=== PATIENT | female | born 1955 | race Caucasian/White ===

== ENCOUNTER 2020-03-12 15:58 | Outpatient (CLI) | payer MEDICARE, SELFPAY ==
--- NOTE | ~2020-03-12 | US_ITS ---
EXAMINATION: US venous doppler LE RT DATE: 03/12/2020 17:23 INDICATION: Right lower limb swelling TECHNIQUE: Mayberry scale images without and with compression and Doppler images of the right lower extre mity veins were obtained. COMPARISON: None. FINDINGS: There is thrombosis in one of two right peroneal veins and the right gastrocnemius vein. Th e right common femoral vein, profunda femoral vein, femoral vein, popliteal vein, posterior tibial ve ins, and greater saphenous vein are patent. IMPRESSION: 1. Deep venous thrombosis in one of two peroneal veins and the gastrocnemius vein. Reviewed, dictated and finalized at location A. IMPRESSION: 1. Deep venous thrombosis in one of two peroneal veins and the gastrocnemius ve in.
--- NOTE | ~2020-03-12 | US_ITS ---
EXAMINATION: US ARTERIAL DUPLEX LOWER BRENDAN DATE: 03/12/2020 17:23 INDICATION: Bilateral lower limb edema TECHNIQUE: Grayscale ultrasound images and duplex color Doppler ultrasound images of the bilateral lo wer extremity arteries were obtained. COMPARISON: None FINDINGS: Waveforms are triphasic with brisk systolic upstroke throughout the bilateral lower extremities. Peak systolic velocities (cm/s) were obtained in the following arteries: Right lower extremity: Common femoral: 170 Superficial femoral, proximal: 126 Superficial femoral, mid: 142 Superficial femoral, distal: 149 Popliteal: 72 Peroneal, proximal: 97 Peroneal, distal: 73 Posterior tibial, proximal: 149 Dorsalis pedis: 62 Anterior tibial: 68 Left lower extremity: Common femoral: 160 Superficial femoral, proximal: 160 Superficial femoral, mid: 112 Superficial femoral, distal: 130 Popliteal: 90 Peroneal, proximal: 86 Peroneal, distal: 95 Posterior tibial, proximal: 161 Dorsalis pedis: 68 Anterior tibial: 50 IMPRESSION: 1. Normal waveforms and velocities of the lower extremities. Reviewed, dictated and finalized at location A.
== END 2020-03-12 15:59 | disposition home or self-care (01) ==
DX: M79.89 Other specified soft tissue disorders (principal); I82.461 Acute embolism and thrombosis of right calf muscular vein; I82.451 Acute embolism and thrombosis of right peroneal vein
CPT/HCPCS: 93925; 93971

== ENCOUNTER 2020-05-28 17:07 | Outpatient (CLI) | payer MEDICARE, SELFPAY ==
--- NOTE | ~2020-05-28 | XR_ITS ---
XR chest 2V 05/28/2020 17:29 Indication: COPD. Procedure: PA and lateral views of the chest Comparison: No prior studies for comparison. Findings: There is coarse gestational changes throughout both lungs with biapical pleural thickening/ scarring. The lungs are hyperinflated which is consistent with, but not diagnostic of chronic obstruc tive pulmonary disease. Heart size is normal. Mildly prominent mediastinum. Cannot exclude lymphadeno isis. Impression: 1: Probable chronic pulmonary fibrosis superimposed on emphysema. Apical pleural thickening/scarring, likely chronic. Cannot exclude acute superimposed pneumonia without prior comparisons. Reviewed, dictated and finalized at location A. Impression: 1: Probable chronic pulmonary fibrosis superimposed on emphysema. Apical pleura l thickening/scarring, likely chronic. Cannot exclude acute superimposed pneumo ayse without prior comparisons.
== END 2020-05-28 17:08 | disposition home or self-care (01) ==
DX: J44.9 Chronic obstructive pulmonary disease, unspecified (principal); R91.8 Other nonspecific abnormal finding of lung field
CPT/HCPCS: 71046

== ENCOUNTER 2020-09-17 20:00 | Outpatient (NON) | payer MEDICARE, SELFPAY ==
[2020-09-17 20:34] LABS: Basophils Absolute Auto 0.02 K/mm3 (0.00-0.10); Basophils Percent Auto 0.2 % (0.0-1.0); Eosinophils Absolute Auto 0.15 K/mm3 (0.02-0.50); Eosinophils Percent Auto 1.6 % (1.0-6.0); Hematocrit 27.7 % (35.0-42.0); Hemoglobin 8.5 g/dL (11.7-13.8); Immature Granulocyte Absolute 0.02 K/mm3 (0.00-0.00); Immature Granulocyte Percent A 0.2 % (0.0-0.0); Lymphocytes Absolute Auto 1.88 K/mm3 (1.10-4.50); Lymphocytes Percent Auto 19.5 % (18.0-42.0); Mean Corpuscular HGB Conc 30.7 g/dL (32.0-36.0); Mean Corpuscular Hemoglobin 27.8 pg (27.0-31.0); Mean Corpuscular Volume 90.5 fL (78.0-102.0); Mean Platelet Volume 10.4 fl (9.2-11.8); Monocytes Absolute Auto 0.96 K/mm3 (0.10-0.90); Neutrophils Absolute Auto 6.6 K/mm3 (1.7-7.2); Neutrophils Percent Auto 68.5 % (50.0-70.0); Platelet Count Result 178 K/mm3 (150-420); Red Blood Count 3.06 M/mm3 (4.20-5.40); Red Cell Distribution Width 15.1 % (11.6-14.4); White Blood Count 9.6 K/mm3 (4.8-10.8)
== END 2020-09-17 20:01 ==
LOC: CHSLAB 20:09
DX: D64.9 Anemia, unspecified (principal)
CPT/HCPCS: 36415; 85025